=== PATIENT | male | born 1980 | race Caucasian/White ===

== ENCOUNTER 2017-08-23 12:38 | Outpatient (CLI) | payer BC, MEDICARE | END 2017-08-23 12:39 | disposition home or self-care (01) | LOC: BICRAD 12:38 | PROVIDERS: ATTEND Internal Medicine | DX: J18.9 Pneumonia, unspecified organism (principal) | CPT/HCPCS: 71046 ==

== ENCOUNTER 2018-06-01 10:12 | Emergency (ER) | payer BC, MEDICARE ==
[2018-06-01] MEDS ORDERED: Lidocaine 1% PF 5 ML VIAL ONE (10:43)
[2018-06-01] MEDS ORDERED: predniSONE 20 MG TAB ONE (11:14)
== END 2018-06-01 11:27 | disposition home or self-care (01) ==
LOC: SCSER 10:12
DX: L50.9 Urticaria, unspecified (principal); L02.31 Cutaneous abscess of buttock; F17.210 Nicotine dependence, cigarettes, uncomplicated
CPT/HCPCS: 10061; J2001; J7506